=== PATIENT | female | born 1960 | race Caucasian/White ===

== ENCOUNTER → 2017-07-18 | Outpatient (CLI) | payer BC, OTHER ==
[~2017-07-18] MED LIST: ACTIVELLA TABLE1 TAB PO; ALLEGRA PO; ANTIVERT PO; ATIVAN PO; CALTRATE 600+D PO; IBUPROFEN PO; KEFLEX PO; LOESTRIN FE 1/21 TAB PO; MULTI-VITAMIN1 TAB PO; NEURONTIN PO; PHENERGAN PO; TOPAMAX PO; VICODIN 5/500 T1 TAB PO; VITAMIN D 4001 UDTAB PO; ZITHROMAX PO
--- NOTE | ~2017-07-18 | MY29 ---
[facility] A Service of [facility] RADIOLOGY TEXT RESULTS PATIENT: MARTINA GONZALES LOCATION: [facility] : 56 UNIT #: [id number] AGE: [address]: Everette Mario MD SEX: F ORDER DR: [id number] [facility] [address] [place], [place] [address] [id number] O MR#: [id number] Acc #: [id number] NAME: MARTINA GONZALES : 1960 SEX: F STUDY DATE/TIME: 07/18/2017 15:28 UNIT: [facility] ROOM: STUDY DESCRIPTION: MY HAMZAH SCREENING W/ CAD BILAT Attending Physician: Everette Mario M.D. Referring Physician: Everette Mario M.D. Ordering Physician: Everette Mario M.D. Primary Care Physician: Generic Doctor Not In System MEDICAL IMAGING REPORT This report is preliminary unless electronic signature is present EXAM Bilateral digital screening mammogram with CAD. INDICATIONS Routine screening. No current complaints. No family history of breast cancer. COMPARISON 07/15/2016, 07/13/2015 FINDINGS MLO and CC digital views of each breast were obtained. The study was reviewed with an FDA-approved CAD device. The breasts are heterogeneously dense. There are no masses or abnormal calcifications. IMPRESSION No change, no evidence of malignancy. Patients over the age of 40 are entered into a reminder system with target due date for the next mammogram. A result letter will also be sent to the patient. BIRADS: 1 Negative Dictated by... Gerber Ivy M.D. THIS IS AN ELECTRONICALLY VERIFIED REPORT Gerber Ivy M.D. at 07/19/2017 1:30 PM FEL/psc [facility] A Service [facility] RADIOLOGY TEXT RESULTS PATIENT: MARTINA GONZALES LOCATION: [facility] : 56 UNIT #: [id number] AGE: [address]: Everette Mario MD SEX: F ORDER DR: TD: 07/19/2017 00:56 JOB #: [id number] MEDICAL IMAGING REPORT Page 1 of 1 COPY
== END | disposition home or self-care (01) ==
LOC: CWCC 15:00
DX: Z12.31 Encounter for screening mammogram for malignant neoplasm of breast (principal)
CPT/HCPCS: G0202